=== PATIENT | female | born 1995 | race Hispanic/Latino ===

== ENCOUNTER 2019-12-23 12:38 | Emergency (ER) | payer OTHER ==
[~2019-12-23] VITALS: Ht 160 cm; Wt 59.7 kg
[2019-12-23 12:39] VITALS: BP 130/70
[2019-12-23] MEDS ORDERED: VENTAER INH (12:49)
[2019-12-23] MEDS ORDERED: VYVA50CA4 PO (12:49)
[2019-12-23] MEDS ORDERED: NS 1,000 ML IV ONE (13:30)
[2019-12-23] MEDS ORDERED: METOCLOPRAMIDE INJ 10MG/2ML VIAL (J2765 PER 1) IV ONE (13:30)
[2019-12-23 13:45] LABS: BASO # 0.1 10^3/uL (0.0-0.2); BASO % 0.5 % (0.0-1.0); EOS # 0.9 10^3/uL (0.0-0.5); EOS % 7.4 % (0.0-3.0); HEMATOCRIT 37.7 % (36.0-47.0); HEMOGLOBIN 12.7 g/dl (12.0-15.5); LYMPH # 2.1 10^3/uL (1.5-5.0); LYMPH % 17.8 % (24.0-44.0); MEAN CORPUSCULAR HEMOGLOBIN 30.9 pg (27.0-33.0); MEAN CORPUSCULAR HGB CONC 33.7 g/dl (32.0-36.5); MEAN CORPUSCULAR VOLUME 91.7 fl (80.0-96.0); MONO # 0.9 10^3/uL (0.0-0.8); MONO % 7.3 % (0.0-5.0); NEUTROPHILS # 7.7 10^3/uL (1.5-8.5); NEUTROPHILS % 66.7 % (36.0-66.0); PLATELET COUNT, AUTOMATED 294 10^3/uL (150-450); RED BLOOD COUNT 4.11 10^6/uL (4.00-5.40); WHITE BLOOD COUNT 11.6 10^3/uL (4.0-10.0)
[2019-12-23 14:38] LABS: ALBUMIN 3.9 GM/DL (3.2-5.2); ALT/SGPT 14 U/L (12-78); BILIRUBIN,DIRECT 0.2 MG/DL (0.0-0.2); BILIRUBIN,TOTAL 0.4 MG/DL (0.2-1.0); BLOOD UREA NITROGEN 6 MG/DL (7-18); CALCIUM LEVEL 9.1 MG/DL (8.5-10.1); CARBON DIOXIDE LEVEL 26 MEQ/L (21-32); CHLORIDE LEVEL 101 MEQ/L (98-107); CREATININE FOR GFR 0.53 MG/DL (0.55-1.30); GLOMERULAR FILTRATION RATE > 60.0 (>60); GLUCOSE, FASTING 79 MG/DL (70-100); HCG, SERUM QUANTITATIVE 41181 MIU/ML; LIPASE 47 U/L (73-393); POTASSIUM SERUM 3.8 MEQ/L (3.5-5.1); SODIUM LEVEL 134 MEQ/L (136-145); TOTAL PROTEIN 7.4 GM/DL (6.4-8.2)
[2019-12-23] MEDS ORDERED: ONDANSETRON 4MG/2ML VIAL IV ONE (15:30)
[2019-12-23] MEDS ORDERED: DICL10TA PO (15:31)
[2019-12-23] MEDS ORDERED: UNIS25TA3 PO (15:31)
--- NOTE | 2019-12-23 16:24 | REP ---
FIRST TRIMESTER ULTRASOUND: Real-time sonographic evaluation of the gravid uterus is performed. There is a single living intrauterine gestation. The estimated gestational age is 5 weeks 6 days with a crown-rump length of 3 mm. EDC is 08/18/2020. heart rate is 108 beats per minute. There is no subchorionic hemorrhage. Left ovarian cystic structure probably represents a corpus luteum 1.3 cm in diameter. Right ovary appears unremarkable. There is no evidence of ovarian torsion bilaterally with duplex Doppler evaluation. Electronically Signed by Domingo Gipson MD 12/23/2019 04:38 P
== END 2019-12-23 16:07 | disposition home or self-care (01) ==
LOC: M ED 12:38
DX: O21.9 Vomiting of pregnancy, unspecified (principal); O26.891 Other specified pregnancy related conditions, first trimester; R10.2 Pelvic and perineal pain; R04.0 Epistaxis; O99.011 Anemia complicating pregnancy, first trimester; O99.511 Diseases of the respiratory system complicating pregnancy, first trimester; Z3A.01 Less than 8 weeks gestation of pregnancy
CPT/HCPCS: 76801; 80048; 80076; 83690; 84702; 85025; 93976; 96361; 96374; 96375; 99283; J2405; J2765

== ENCOUNTER 2020-02-04 12:35 | Emergency (ER) | payer OTHER ==
[~2020-02-04] VITALS: Ht 160 cm; Wt 60.1 kg
[~2020-02-04 12:35] MED LIST: DICL10TA PO; UNIS25TA3 PO; VENTAER INH; VYVA50CA4 PO
[2020-02-04] MEDS ORDERED: PREN29TA4 PO (12:43)
[2020-02-04] MEDS ORDERED: REGL10TA6 PO (13:38)
[2020-02-04] MEDS ORDERED: METOCLOPRAMIDE 10 MG TAB PO ONE (13:45)
[2020-02-04 14:04] VITALS: BP 115/68
== END 2020-02-04 14:00 | disposition home or self-care (01) ==
LOC: M ED 12:35
DX: O98.519 Other viral diseases complicating pregnancy, unspecified trimester (principal); B34.9 Viral infection, unspecified; O99.519 Diseases of the respiratory system complicating pregnancy, unspecified trimester; J45.909 Unspecified asthma, uncomplicated; Z79.51 Long term (current) use of inhaled steroids; Z88.1 Allergy status to other antibiotic agents

== ENCOUNTER 2020-04-11 10:05 | Outpatient (CLI) | payer OTHER ==
[~2020-04-11] VITALS: Ht 160 cm; Wt 64.0 kg
[~2020-04-11 10:05] MED LIST changes: +PREN29TA4 PO; +REGL10TA6 PO
[2020-04-11 10:26] VITALS: BP 105/63
[2020-04-11 11:57] LABS: APPEARANCE, URINE HAZY (CLEAR); BACTERIA, URINE AUTO NEGATIVE (NEGATIVE); BILIRUBIN, URINE AUTO NEGATIVE (NEGATIVE); BLOOD, URINE BLOOD NEGATIVE (NEGATIVE); COLOR, URINE YELLOW (YELLOW); GLUCOSE, URINE (UA) AUTO NEGATIVE (NEGATIVE); KETONE, URINE AUTO NEGATIVE (NEGATIVE); LEUKOCYTE ESTERASE, URINE AUTO NEGATIVE (NEGATIVE); MUCUS, URINE SMALL (NEGATIVE); NITRITE, URINE AUTO NEGATIVE (NEGATIVE); PROTEIN, URINE AUTO NEGATIVE (NEGATIVE); RBC, URINE AUTO 0 /HPF (0-3); SPECIFIC GRAVITY URINE AUTO 1.013 (1.002-1.035); SQUAMOUS EPITHELIAL CELL UR AU 0 /HPF (0-6); UROBILINOGEN, URINE AUTO 0.2 mg/dL (0.0-2.0); WBC, URINE AUTO 1 /HPF (0-3)
[2020-04-11 12:28] VITALS: BP_SYST 105; BP_SYST 90; BP_DIAS 51; BP_DIAS 60
[2020-04-11 13:31] VITALS: BP 102/55
== END 2020-04-11 13:35 | disposition home or self-care (01) ==
LOC: M LDO 10:05
PROVIDERS: ATTEND Obstetrics & Gynecology
DX: O26.892 Other specified pregnancy related conditions, second trimester (principal); R10.2 Pelvic and perineal pain; Z3A.22 22 weeks gestation of pregnancy
CPT/HCPCS: 81001; 87086; G0378; G0463

== ENCOUNTER 2020-05-04 22:31 | Outpatient (CLI) | payer OTHER ==
[~2020-05-04] VITALS: Ht 160 cm; Wt 66.7 kg
[2020-05-04 23:00] VITALS: BP 121/69
[2020-05-04] MEDS ORDERED: ASCO50TA PO (23:03)
[2020-05-04] MEDS ORDERED: IRON65TA2 PO (23:03)
[2020-05-04 23:04] VITALS: BP 114/68
[2020-05-05] MEDS ORDERED: LR 1,000 ML IV ONE (00:15)
[2020-05-05 01:03] VITALS: BP 126/77
--- NOTE | 2020-05-16 14:22 | HPE ---
DATE OF ADMISSION: 05/04/2020 HISTORY OF PRESENT ILLNESS: This is a 25-year-old 2, para 0, abort-1, last menstrual period (LMP) 11/08/2019, estimated date of confinement (EDC) 08/14/2020 at 25-2 weeks of gestation, comes in with a history of increased vaginal discharge, sharp vaginal pains. Risk factors: She has attention-deficit/hyperactive disorder (ADHD), asthma, vasovagal attacks and dehydration. PAST HISTORY: 12/2016, spontaneous . LABORATORY DATA: O positive. HIV negative. Hepatitis negative. RPR negative. Rubella immune. Varicella nonimmune. Pap normal. Gonorrhea and chlamydia are negative. One-hour glucose 115. Blood pressure 114/68, respirations 16, pulse 76, temperature 98.8. Urine is 1.030, pH 5, plus for ketones. PHYSICAL EXAMINATION: In no distress. Symphysis fundal height is 25, category 1 strip. Sterile speculum examination: Cervix is posterior, close, no blood. Minimal amount of discharge was noted. A slide was performed. There is no ferning, no BV, no yeast. FFN was done and GBS culture. We did an ultrasound, which showed a vertex presentation, active fetus. SASHA total is 11.99. Cardiac activity is 122 beats per minute. Motion of legs and arms was noted and some spontaneous respirations. Cervical length on deep penetration was 4.7 cm, no funneling on Valsalva maneuver. IN SUMMARY: 25 week gestation with increasing leukorrhea physiologic, vaginal discharge, vaginal pain secondary to positional affect of the baby. The patient was discharged undelivered after hydration and precautions were given. She is going to keep her appointment at [facility] May 23, 2020. All questions were answered. [facility]
== END 2020-05-05 01:10 | disposition home or self-care (01) ==
LOC: M LDO 22:31
PROVIDERS: ATTEND Obstetrics & Gynecology
DX: O26.892 Other specified pregnancy related conditions, second trimester (principal); R10.2 Pelvic and perineal pain; Z3A.25 25 weeks gestation of pregnancy
CPT/HCPCS: 82731; 87081; 96360; G0378; G0463

== ENCOUNTER 2020-08-15 09:40 | Inpatient (IN) | payer OTHER ==
[~2020-08-15] VITALS: Ht 160 cm; Wt 69.9 kg
[2020-08-15] VITALS (37 sets, daily range): BP systolic 104–150; BP diastolic 58–89
[~2020-08-15 09:40] MED LIST changes: +ASCO50TA PO; +IRON65TA2 PO
[2020-08-15] MEDS ORDERED: LACTATED RINGER'S 1000 ML IV STA (13:06)
[2020-08-15] MEDS ORDERED: LR 1,000 ML IV SCH (13:06)
[2020-08-15] MEDS ORDERED: OXYTOCIN DRIP 30 UNITS in IV 1 EA IV SCH ×2 (13:15→20:33)
--- NOTE | 2020-08-15 13:17 | HPEPDOC ---
Obstetrical History & Physical General Date of Admission History of Present Illness 25 yo @ 40+1 by 1T US presents for labor check and found to be in labor. reports regular painful contractions that are q5min. she reports regular movements and denies any VB. she has no other concerns. Chief Complaint: Contractions, term : 2 Abortions: 1 Care Care: Good Care Dating Final EDC: Aug 14, 2020 Final EDC by: 1st trimester (US) Estimated Date of Confinement: Aug 14, 2020 Antepartum Course Diagnos(e)s 1. Varicella non immune 2. Asthma- used albuteral inhaler PRN 3. 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 deficit disorder * Smoker: non-smoker Alcohol: Denies Drugs: denies Abuse Violence Screening Have you been hit/kicked/slapp: No Have you been sexually assault: No Imunizations Tdap status: current Influenza Status: needs Allergies Coded Allergies: azithromycin (Verified Allergy, Severe, lips and ears swelled, 04/11/20) Medications Scheduled Prenat 115/Iron Fum/Folic/Dss ( 19 Tablet) 1 Each Tablet, 1 TAB PO DAILY Scheduled PRN Albuterol Sulfate (Ventolin Hfa) 18 Gm Hfa.aer.ad, 2 PUFF INH Q4-6HP PRN for wheezing Physical Examination Physical Examination GENERAL: Alert and oriented times three. BREAST: . ABDOMEN: Gravid and non-tender to touch. FETUS: Is vertex (VTX) by sterile vaginal examination (SVE), HEART RATE: Regular rate and rhythm. LUNGS:Normal work of breathing EXTREMITIES: No edema. SVE: .5/90/-1, BULGING BAG Vital Signs/I&O Vital Signs Date Time Temp Pulse Resp B/P (MAP) Pulse Ox O2 Delivery O2 Flow Rate FiO2 08/15/20 09:54 98.7 76 16 118/86 (97) Pertinent Laboratoy Data Blood Type: O+ RBC Antibody Screen: Negative HIV: Negative Hepatitis B: Negative Hepatitis C: Unknown Rapid Plasma Reagin: Nonreactive Rubella: Immune Varicella: Nonreactive Chlamydia/Gonorrhea: Negative Group B Streptococcus: Negative Cystic Fibrosis: Negative Anatomy Ultrasound Placenta Location: Anterior Steroid Therapy Steroid Therapy: No Vaginal Examination Cervical Consistency: Soft Cervical Position: Anterior Presentation: Cephalic presentation Position: Vertex (occiput) Assessment Heart Rate (FHR): 140 Variability: Moderate Accelerations: Positive Decelerations: None Tocometer Contractions: Yes Frequency: regular, every 1-5 min. Strength: palpated as moderate Multi-drug resistant Organism: No history of MDRO Assessment/Plan Assessment 25 yo @ 40+1 by 1T US presents for labor check and found to be in labor. GBS neg, RH pos. 1. Varicella non immune 2. Asthma- used albuteral inhaler PRN 3. Anemia Plan Admit and orient. 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 Diet: clear Group B Streptococcus (GBS) negative. Labs and intravenous (IV) per unit protocol. Counseled on Pitocin and augmentation of labor (IOL). Lactated Ringers (LR): Bolus 1000 mL, then at 125 mL/hr. Anticipate normal spontaneous delivery (). C-S as appropriate. Labor and Delivery Counseling We will deliver your baby through the vagina with possible assistance of forceps or vacuum device if needed for maternal or indications. Forceps and vacuum are devices that can assist with vaginal delivery when normal pushing efforts c annot achieve delivery on their own or when delivery is needed in an emergency for baby's well-being. Medications may be required to induce or augment (help) your labor in order to achieve a vaginal delivery. An episiotomy may be required to help your baby to delivery vaginally. You may also require repair of any lacerations or tears of your vagina or vulva that are caused by delivery. In some cases, emergencies can occur that require an emergency section delivery so quickly that there may not be enough time to stop and complete consent forms for section. Understand that if this occurs, your providers will discuss the need for a section with you before they proceed with surgery. section is the delivery of your baby through an incision in your abdomen. In some situations, section may be safer to mom and baby than continuing labor and is only performed when clinically indicated. Risks of vaginal delivery include but are not limited to: Bleeding, infection, injury to the vagina, pelvic structures, injury to baby, damage to the uterus, reactions to anesthesia, uterine rupture, risk of hysterectomy for life threatening bleeding, or . Medications used to induce or augment labor may increase your risk for infection, uterine tachysystole, uterine rupture, heart rate abnormalities, need for emergency delivery or possible hysterectomy, and hemorrhage. Additional risks for use of forceps and vacuum include: increased risk of perineal and vaginal lacerations, risk of urinary or bowel incontinence, increased risk of injury to baby with bruising, scratches, hematomas on the head, or intracranial bleeding. MAINOR GARAY MD Aug 15, 2020 11:22
[2020-08-15 13:54] LABS: HEMATOCRIT 35.9 % (36.0-47.0); HEMOGLOBIN 11.7 g/dl (12.0-15.5); MEAN CORPUSCULAR HEMOGLOBIN 27.9 pg (27.0-33.0); MEAN CORPUSCULAR HGB CONC 32.6 g/dl (32.0-36.5); MEAN CORPUSCULAR VOLUME 85.7 fl (80.0-96.0); PLATELET COUNT, AUTOMATED 369 10^3/uL (150-450); RED BLOOD COUNT 4.19 10^6/uL (4.00-5.40)
[2020-08-15] MEDS ORDERED: FENTANYL 2MCG/ML ROPIVACAINE 0.2% IN 0.9% NACL 100ML IVBAG As Ordered ONE (14:58)
[2020-08-15] MEDS ORDERED: diphenhydrAMINE 50MG/ML VIAL (J1200) IV PRN (16:30)
[2020-08-15] MEDS ORDERED: EPIDURAL/PCA KEYS XX PRN (16:30)
[2020-08-15] MEDS ORDERED: ONDANSETRON 4MG/2ML VIAL IV PRN (16:30)
[2020-08-15] MEDS ORDERED: FENTANYL/ROPIVACAINE/NACL BAG 100 ML EPIDURAL SCH (16:30)
[2020-08-15] MEDS ORDERED: ePHEDrine SULFATE 25 MG/5 ML(5MG/ML) SYRINGE IV PRN (16:30)
[2020-08-15] MEDS ORDERED: NALOXONE INJ 0.4MG/1ML VIAL (J2310 PER 1MG) IV PRN (16:30)
[2020-08-15] MEDS ORDERED: REFRIGERATOR IV KEYS XX PRN (16:30)
[2020-08-15] MEDS ORDERED: LACTATED RINGER'S 1000 ML IV PRN (16:30)
[2020-08-15] MEDS ORDERED: EPIDURAL COMMENT XX SCH (16:30)
--- NOTE | 2020-08-15 17:35 | IPNPDOC ---
Obstetrical Progress Note Date of Service Aug 15, 2020 Subjective to room for assessment. patient is feeling some pressure has epidural in place. FHT: 140, Mod mateus,+accels, -decel--cat I tracing [place]: 3-11/25 sve: 9/c/0, arom clear A/P Active labor. cat I tracing. continue active labor of managment. anticipate Objective Vital Signs Date Time Temp Pulse Resp B/P (MAP) Pulse Ox O2 Delivery O2 Flow Rate FiO2 08/15/20 16:39 80 16 113/61 (78) 98 Room Air 08/15/20 14:47 98.3 MAINOR GARAY MD Aug 15, 2020 17:35
--- NOTE | 2020-08-15 20:42 | DNPDOC ---
[facility] Delivery Note Delivery Note DATE OF DELIVERY: 08/15/2020 PREDELIVERY DIAGNOSIS:40-1/7 weeks' gestation and labor. POST DELIVERY DIAGNOSIS: Delivered. 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 Mainor Garay ANESTHESIA: epidural ESTIMATED BLOOD LOSS: 200 mL. FINDINGS: 8 pound 15 ounce (4040g) female , Score 9/10, BODY CORD, LEFT COMPOUND HAND. DELIVERY SUMMARY: Patient is a 25-year-old 1 now para 1 who was admitted to labor and delivery in active labor. She progressed to C/C/+2 and with good maternal effort delivered a viable inf ant. The infants head delivered OA and the head was allowed to spontaneously restitute LILY. loose body cord noted and delivered through. left compound hand and anterior shoulders delivered with gentle downward traction followed by posterior shoulder and corpus without difficulty. Normal 3-vessel cord clamped x 2 and cut by FOB after 1 minute of delayed cord clamping. Spontaneous cry noted. Infant placed on maternal abdomen for [id number] Cord blood obtained. Placenta delivered spontaneously and inspection of the placenta demonstrated that it was intact. The cord insertion appeared normal. The uterus was cleared of all clots and debris. Fundal massage until firm. 30 units of Pitocin administered per protocol and the patient required no additional uterotonics. Inspection of cervix, perineum, and vaginal wall revealed 1st degree laceration repaired in the usual fashion. also a small left labial laceration repaired with a figure of eight with 3-0 vicryl. . . Repeat uterine examination noted uterine tone to be adequate and firm. Mom and stayed in L&D in hemodynamic stable condition upon my departure. Sponge, lap and needle count correct x 2. KACI GARAY Staff MAINOR GARAY MD Aug 15, 2020 20:42
[2020-08-15] MEDS ORDERED: MEASLES,MUMPS,RUBELLA VACCINE INJ (MMR-II) (90707) SC SCH (20:45)
[2020-08-15] MEDS ORDERED: DOCUSATE SODIUM 100MG CAPSULE PO PRN (20:45)
[2020-08-15] MEDS ORDERED: BENZOCAINE 20% HEMORRHOIDAL OINTMENT 28GM TUBE TOP PRN (20:45)
[2020-08-15] MEDS ORDERED: ANUSOL HC CREAM 30GM TOP PRN (20:45)
[2020-08-15] MEDS: IBUPROFEN 800 MG TAB PO PRN (21:39)
[2020-08-16 05:30] VITALS: BP 121/79
[2020-08-16] MEDS: IBUPROFEN 800 MG TAB PO PRN ×2 (05:59→16:15)
--- NOTE | 2020-08-16 06:56 | IPNPDOC ---
Progress Note Date of Service: Aug 16, 2020 Day#: 1 Progress Note SUBJECT: Tigre is a 25 -year-old 1 now Para 1 status post uncomplicated spontaneous vaginal delivery at 40-1 /7 weeks' of 8 pound 15 ounce (4040g) female infant, Score 9/10, BODY CORD, LEFT COMPOUND HAND. she had a post vaginal laceration and repair, doing well day # 1. She has been ambulating, voiding spontaneously without issue and tolerating regular diet. Breast feeding without issue. Reports lochia is minimal . OBJECTIVE: VITAL SIGNS: Within normal limits, afebrile. Alert and oriented times three. normal work of breathing. Heart rate: Regular rate and rhythm, Abdomen: Fundus firm at U-2. . ASSESSMENT: Tigre is a 25 -year-old 1 now Para 1 status post uncomplicated spontaneous vaginal delivery at 40-1 /7 weeks' of 8 pound 15 ounce (4040g) female , Score 9/10, BODY CORD, LEFT COMPOUND HAND. she had a post vaginal laceration and repair, doing well day # 1. Vitals within normal limits, afebrile, hemodynamically stable with no evidence of infection. PLAN: 1. Discharge to home tomorrow 2. Tylenol and Motrin for pain. 3. Encourage breast feeding and ambulation. 4. Nexplanon for contraception 5. Routine PP visit in 6 weeks in clinic. 6. Discussed return precautions at length. VS, I&O, 24H, Fishbone Vital Signs/I&O Vital Signs Date Time Temp Pulse Resp B/P (MAP) Pulse Ox O2 Delivery O2 Flow Rate FiO2 08/16/20 05:30 98.9 68 16 121/79 (93) 97 Room Air I&O- Last 24 Hours up to 6 AM 08/16/20 06:00 Intake Total 3955 ml Output Total 1000 ml Balance 2955 ml Laboratory Data 24H LABS Laboratory Tests 2 08/15/20 13:26: Serology Scanned Report Hepatitis B Testing 08/15/20 13:34: Nucleated Red Blood Cells % (auto) 0.0, Syphilis Serology NONREACTIVE CBC/BMP Laboratory Tests 08/15/20 13:34 MAINOR GARAY MD Aug 16, 2020 06:56
[2020-08-16] MEDS: PRENATAL VITAMINS CHEWABLE TABLET PO SCH (08:41)
[2020-08-16] MEDS: ACETAMINOPHEN 500 MG TAB PO PRN ×2 (08:43→22:31)
[2020-08-16] MEDS: FIORICET TAB PO SCH ×2 (13:31→18:25)
[2020-08-16 18:08] VITALS: BP 128/72
[2020-08-17] MEDS: FIORICET TAB PO SCH ×5 (01:03→23:45)
[2020-08-17 05:50] VITALS: BP 136/89
--- NOTE | 2020-08-17 08:59 | IPN ---
PROGRESS NOTE DATE: 08/17/2020 SUBJECTIVE: This lady is a 25-year-old , para 1, admitted in active labor at 40 and 1 week gestation. She had spontaneous vaginal delivery of a female 8 pounds 15 ounces (4040 grams), of 9 and 10 at one and five minutes respectively. She suffers from asthma, anemia, and she had a spinal headache. She tried conservative management for the spinal headache, which included Fioricet, caffeine, and hydration. She is nonfunctional this morning still having her headache, and we are consulting again anesthesia in regards to a blood patch. OBJECTIVE: Presently, her blood pressure is 136/89, respiratory rate are 18, pulse 69, temperature is 98.3. Her admitting hemoglobin was 11.7, hematocrit 35.9, and platelets are 369,000. The rest of the examination is unremarkable. She is normocephalic, atraumatic. Neck with full range of motions, but very tender. Abdomen soft. Uterus two below. Lochia mild. Four quadrant bowel sounds are noted. Presently and doing well. No rashes, lesions, or pruritus. No arthralgias or myalgias. No complaint of joint pain. No complaint of cough, wheeze, shortness of breath, or dyspnea on exertion. ASSESSMENT AND PLAN: Our plan of management is to consult anesthesia regarding a blood patch. Ibuprofen for pain management, Tylenol, and Colace. A six week checkup at [facility]. All questions were answered, 20 minute discussion.
[2020-08-17] MEDS ORDERED: INFLUENZA QUADRIVALENT PF VACCINE 0.5ML SYRINGE IM ONE (09:00)
[2020-08-17] MEDS: PRENATAL VITAMINS CHEWABLE TABLET PO SCH (09:00)
[2020-08-17 12:45] VITALS: BP 118/78
[2020-08-17 13:15] VITALS: BP 120/77
[2020-08-17 14:15] VITALS: BP 119/75
[2020-08-17 15:15] VITALS: BP 116/72
[2020-08-17 17:57] VITALS: BP 128/72
[2020-08-18 06:00] VITALS: BP 116/61
[2020-08-18] MEDS: FIORICET TAB PO SCH (06:07)
--- NOTE | 2020-08-18 08:53 | DS.PDOC ---
Discharge Summary General Date of Admission Aug 15, 2020 at 13:08 Date of Discharge 08/18/20 Discharge Summary HOSPITAL COURSE: Ms. Hong is a 25 yo G1 now P1 who underwent an uncomplicated on 15Aug2020 after being admitted for active labor. She had a significant headache and there was concern for a spinal headache. She had a blood patch on 17Aug2020 and this somewhat improved her symptoms. Her course has otherwise been unremarkable. On her day of discharge she met all appropriate discharge criteria. She was ambulating, voiding, tolerating a regular diet, and had minimal lochia. DISCHARGE MEDICATIONS: Please see below. ALLERGIES: Please see below. PHYSICAL EXAMINATION ON DISCHARGE: VITAL SIGNS: Please see below. GENERAL: AAOX3, NAD, pleasant and conversant ABDOMINAL EXAMINATION: Fundus firm at U-2. No fundal tenderness EXTREMITIES: No edema PSYCHIATRIC EXAMINATION: Affect appropriate LABORATORY DATA: Please see below. ACTIVITY: Pelvic rest for 6 weeks DIET: Regular diet DISCHARGE PLAN: Discharge home DISPOSITION: Discharge home on 18Aug2020. DISCHARGE INSTRUCTIONS: 1. Pelvic rest for 6 weeks ITEMS TO FOLLOWUP ON ON OUTPATIENT: 1. appointment in 6-8 weeks DISCHARGE CONDITION: Stable. TIME SPENT ON DISCHARGE: Greater than 20 minutes. Vital Signs/I&Os Vital Signs Date Time Temp Pulse Resp B/P (MAP) Pulse Ox O2 Delivery O2 Flow Rate FiO2 08/18/20 06:37 18 08/18/20 06:00 98.4 56 116/61 (79) 100 Room Air Discharge Medications Scheduled Prenat 115/Iron Fum/Folic/Dss ( 19 Tablet) 1 Each Tablet, 1 TAB PO DAILY, (Reported) Scheduled PRN Albuterol Sulfate (Ventolin Hfa) 18 Gm Hfa.aer.ad, 2 PUFF INH Q4-6HP PRN for wheezing, (Reported) Allergies Coded Allergies: azithromycin (Verified Allergy, Severe, lips and ears swelled, 04/11/20) NEREYDA LEVI DO Aug 18, 2020 08:53
[2020-08-18] MEDS ORDERED: ACET-683 PO (08:57)
[2020-08-18] MEDS ORDERED: IBUP80TA PO (08:57)
[2020-08-18] MEDS: PRENATAL VITAMINS CHEWABLE TABLET PO SCH (09:00)
== END 2020-08-18 13:30 | disposition home or self-care (01) | DRG 807 ==
LOC: M LDO 09:40 → M LDI 13:08 → M OBS 22:02
PROVIDERS: ADMIT Obstetrics & Gynecology; ATTEND Obstetrics & Gynecology
PROC: 10E0XZZ Delivery of Products of Conception, External Approach (ICD-10-PCS; principal; 2020-08-15)
PROC: 0HQ9XZZ Repair Perineum Skin, External Approach (ICD-10-PCS; 2020-08-15)
PROC: 3E0R3GC Introduction of Other Therapeutic Substance into Spinal Canal, Percutaneous Approach (ICD-10-PCS; 2020-08-15)
DX: O48.0 Post-term pregnancy (principal); Z37.0 Single live birth; Z3A.40 40 weeks gestation of pregnancy; O64.5XX0 Obstructed labor due to compound presentation, not applicable or unspecified; O69.82X0 Labor and delivery complicated by other cord entanglement, without compression, not applicable or unspecified; O99.02 Anemia complicating childbirth; D64.9 Anemia, unspecified; O70.0 First degree perineal laceration during delivery; O89.4 Spinal and epidural anesthesia-induced headache during the puerperium